=== PATIENT | female | born 1995 | race Caucasian/White ===

== ENCOUNTER 2018-03-01 10:30 | Emergency (ER) | payer MEDICAID ==
[~2018-03-01] VITALS: Ht 165.1 cm; Wt 59.0 kg
[2018-03-01 10:50] VITALS: BP 105/65
[2018-03-01 11:00] VITALS: BP 105/65
--- NOTE | 2018-03-01 11:04 | Emergency Room Report ---
History of Present Illness General Chief Complaint: General Complaint Source: Patient Present Illness HPI Patient presents with request of removal of her implanted naltrexone Patient reports that this was done yesterday However does not know where the procedure was done Patient is here with a friend who reports that he was not there And cannot provide information of where the procedure was done Patient reports that she feels nauseated with this Denies any headache denies any chest pain She reported some abdominal discomfort as well Allergies: Coded Allergies: No Known Allergies (Unverified , 03/01/18) Patient History Past Medical History: see triage record Pertinent Family History: none Last Menstrual Period: unknown Reviewed Nursing Documentation: PMH: Agreed; PSxH: Agreed Nursing Documentation-PMH Past Medical History: No History, Except For Review of Systems All Other Systems: negative except mentioned in HPI Physical Exam Vital Signs Date Time Temp Pulse Resp B/P (MAP) Pulse Ox O2 Delivery O2 Flow Rate FiO2 03/01/18 10:40 98.0 97 16 105/65 97 Room Air 98.1 Sp02 EP Interpretation: reviewed, normal General Appearance: well appearing, no apparent distress Head: normocephalic, atraumatic Eyes: bilateral eye PERRL, bilateral eye EOMI ENT: normal pharynx, no angioedema Respiratory: lungs clear Cardiovascular #1: regular rate, rhythm Gastrointestinal: soft Musculoskeletal: normal inspection Neurologic: alert, oriented x3, responsive Skin: other - Small incision with Steri-Strips over the left lower back area, no surrounding cellulitis or erythema Lymphatic: no adenopathy Medical Decision Making Diagnostic Impression: Primary Impression: request of removal of implant ER Course Patient presents awake and alert Reports that she would like to have the implant that was placed yesterday removed At this time there is no emergency criteria for removal of this implant Patient requested to follow at the facility where the implant was placed And stable for outpatient disposition Last Vital Signs Date Time Temp Pulse Resp B/P (MAP) Pulse Ox O2 Delivery O2 Flow Rate FiO2 03/01/18 10:50 98.1 16 105/65 97 Room Air 98.1 03/01/18 10:40 97 Status: unchanged Disposition: HOME, SELF-CARE Condition: Stable Patient Instructions: Naltrexone injection Additional Instructions: Please follow-up at the facility where the implant was placed. Emergency removal of this implant is not indicated Tania Lim DO Mar 01, 2018 11:04
== END 2018-03-01 11:10 | disposition home or self-care (01) ==
LOC: EMR 11:00
DX: R10.9 Unspecified abdominal pain (principal); R11.0 Nausea; Z97.8 Presence of other specified devices
CPT/HCPCS: 99282